=== PATIENT | male | born 1950 | race Caucasian/White ===

== ENCOUNTER 2018-04-07 01:23 | Inpatient (IN) | payer MEDICARE, OTHER ==
[2018-04-07] VITALS (10 sets, daily range): BP systolic 102–149; BP diastolic 69–88
[~2018-04-07] VITALS: Ht 177.8 cm; Wt 93.0 kg
[~2018-04-07 01:23] MED LIST: GABA-549 PO; NAPR220C12 PO; OMEP-218 PO
[2018-04-07] MEDS ORDERED: THROMBIN (BOVINE) 20,000 UNIT VIAL ONE (06:24)
[2018-04-07] MEDS ORDERED: ceFAZolin(*) 2GM/D5W 50ML 50 ML IVPB ONE ×2 (06:30→08:30)
[2018-04-07] MEDS ORDERED: LIDOCAINE MPF 1% 5 ML VIAL ONE (06:45)
[2018-04-07] MEDS ORDERED: fentaNYL CITR 250 MCG/5 ML AMP ONE (06:45)
[2018-04-07] MEDS ORDERED: DEXAMETHASONE SOD 4 MG/ML VIAL ONE (06:45)
[2018-04-07] MEDS ORDERED: PROPOFOL EMUL(*) 10MG/ML 20 ML 20 ML ONE ×2 (06:45→09:04)
[2018-04-07] MEDS ORDERED: ONDANSETRON 4 MG/2 ML VIAL ONE (06:45)
[2018-04-07] MEDS ORDERED: ROCURONIUM BROM 10 MG/ML 10 ML ONE (06:45)
[2018-04-07] MEDS ORDERED: SUGAMMADEX SOD 200 MG/2 ML SDV ONE (06:45)
[2018-04-07] MEDS ORDERED: KETAMINE HCL 200 MG/20 ML MDV ONE (06:48)
[2018-04-07] MEDS ORDERED: HYDROmorphone HCL 2 MG/ML SDV ONE (06:49)
[2018-04-07] MEDS ORDERED: PROPOFOL(*)1000 MG/100 ML VIAL 100 ML ONE ×2 (07:09→07:51)
[2018-04-07] MEDS ORDERED: MIDAZOLAM 2 MG/2 ML VIAL IVP PRN (08:25)
[2018-04-07] MEDS ORDERED: LIDOCAINE/SOD BICARB 8.4% SYR ID ONE (08:30)
[2018-04-07] MEDS ORDERED: MIDAZOLAM 2 MG/2 ML VIAL IVP ONE (08:30)
[2018-04-07] MEDS ORDERED: NORMOSOL R SOLN(*) 1000 ML BAG 1,000 ML IV PRN (08:30)
[2018-04-07] MEDS ORDERED: NS 0.9% 20 ML SDV 40 ML ONE (08:44)
[2018-04-07] MEDS ORDERED: TRANEXAMIC AC 1000 MG/10ML SDV 1,000 MG in DEXTROSE 5% 50 ML BAG 50 ML IVPB ONE (08:45)
[2018-04-07] MEDS ORDERED: fentaNYL CITR 100 MCG/2 ML AMP ONE (11:22)
--- NOTE | 2018-04-07 11:51 | RADIOLOGY IMAGING REPORT ---
FACILITY: [facility] PATIENT NAME: Nils Carrillo : 1950 MR: [id number] V: [id number] EXAM DATE: ORDERING PHYSICIAN: BARTOLO RICHARDS TECHNOLOGIST: Location: [facility] - [place], [place] Patient: Nils Carrillo : 1950 Visit/Account:[id number] Date of Sevice: 04/07/2018 Exam type: LUMBAR SPINE 1 VIEW History: L3-S1 LAMINECTOMIES L4-5 POSTEROLATERAL FUSION Comparison: MR March 15, 2018. Findings: Two prone cross table lateral portable intraoperative views of the lumbar spine were submitted for in terpretation demonstrating posterior lumbar interbody fusion at L4 and L5 with pedicle screws and pos terior fixation rods. Surgical instruments project over the operative field IMPRESSION: 1. As above Report Dictated By: Carol Rangel MD at 04/07/2018 11:46 AM Report E-Signed By: Carol Rangel MD at 04/07/2018 11:47 AM WSN:[email or web address]
[2018-04-07] MEDS ORDERED: ACETAMINOPHEN 500 MG TAB PO PRN (12:15)
[2018-04-07] MEDS ORDERED: BISACODYL 10 MG SUPP PR PRN (12:15)
[2018-04-07] MEDS ORDERED: FLUSH 10 ML SYR IVP PRN (12:15)
[2018-04-07] MEDS ORDERED: MAGNESIUM HYDROXIDE* 30ML UDCP PO PRN (12:15)
[2018-04-07] MEDS ORDERED: HYDROmorphone HCL 2 MG/ML SDV IVP PRN (12:15)
[2018-04-07] MEDS ORDERED: LR(*) 1000 ML BAG 1,000 ML IV PRN (12:15)
[2018-04-07] MEDS ORDERED: oxyCODONE HCL 5 MG CAP PO PRN (12:15)
[2018-04-07] MEDS ORDERED: ACETAMINOPHEN(*)1000 MG/100 ML 100 ML IVPB PRN (12:15)
[2018-04-07] MEDS ORDERED: diphenhydrAMINE 25 MG CAP PO PRN (12:15)
[2018-04-07] MEDS ORDERED: ONDANSETRON 4 MG/2 ML VIAL IVP PRN (12:15)
[2018-04-07] MEDS: APAP/HYDROCODONE 325/5 TAB PO PRN ×4 (12:48→22:11)
[2018-04-07] MEDS: BENZOCAINE/MENTHOL 1 EACH LOZG PO PRN ×4 (12:48→18:31)
--- NOTE | 2018-04-07 14:02 | Hospitalist Consultation ---
History of Present Illness Requesting Physician Dr. Peace Reason for Consult Medication Management Chief Complaint s/p back surgery History of Present Illness He was admitted s/p back surgery. It is reported the surgery went well and without complication. History Problems: (1) Lumbar radiculopathy Status: Chronic Home Meds Reported Medications Naproxen Sodium (ALEVE) 220 Mg Capsule, 220 MG PO for PAIN, CAPSULE 03/30/18 Discontinued Reported Medications Gabapentin (GABAPENTIN) 300 Mg Capsule, 300 MG PO BID, CAPSULE 03/30/18 Allergies: Coded Allergies: epoxy resin (Verified Allergy, Severe, ITCHY/SWELLING OF EYES , 03/30/18) Patient History: FH: diabetes mellitus MOTHER FH: multiple myeloma FATHER FH: ovarian cancer MOTHER Hx Smoking: No (SMOKED IN COLLEGE, NOTHING FOR 40YEARS ) Smoking Status: Former Smoker Caffeine Intake: Coffee Caffeine/Cups Per Day: 2 CUPS OF COFFEE IN AM Hx Alcohol Use: Yes Alcohol Used: Beer Hx Substance Use Disorder: No Social Drug Use: Never Review of Systems All Systems Reviewed/Normal: Yes, Except as Noted Exam Vital Signs Vital Signs Date Time Temp Pulse Resp B/P (MAP) Pulse Ox O2 Delivery O2 Flow Rate FiO2 04/07/18 12:18 97.7 16 135/88 (104) 94 Nasal Cannula 2.0 04/07/18 12:15 72 General Appearance: Alert, Awake, No Acute Distress, Afebrile Neuro: No Gross deficits Cardiovascular: Regular Rate and Rhythm, Other (murmur noted) Respiratory: No Respiratory Distress, Clear to Auscultation Psych: Alert & Oriented X3, Appropriate Mood & Affect Assessment and Plan Problems: (1) Lumbar radiculopathy Status: Chronic Assessment & Plan: He was admitted s/p lumbar laminectomies. He was taking gabapentin for chronic pain, but he has not been taking this medication anymore. He has no history of DVT or PE. Venous Thromboembolism Antithrombotics Is Pt On Any Antithrombotics?: No Prophylaxis Tx Contraindicated Pharmacological Contraindicati: Surgical Contraindication MARC ARZOLA April 07, 2018 14:02
[2018-04-07] MEDS ORDERED: NS(*) 0.9% 500 ML BAG 500 ML ONE (15:01)
[2018-04-07] MEDS: ceFAZolin(*) 2GM/D5W 50ML 50 ML IVPB SCH ×2 (15:15→23:08)
--- NOTE | 2018-04-07 16:55 | OPERATIVE REPORT 1 ---
EVENT DATE: April 07, 2018 SURGEON: Pablo Peace MD ANESTHESIOLOGIST: Tommy Meraz MD ANESTHESIA: General endotracheal anesthesia. FUR DYER: CHIVO Fried PREOPERATIVE DIAGNOSES L3-L4, L4-L5, L5-S1 spinal stenosis with L4-L5 degenerative spondylolisthesis. POSTOPERATIVE DIAGNOSES L3-L4, L4-L5, L5-S1 spinal stenosis with L4-L5 degenerative spondylolisthesis. PROCEDURES PERFORMED L3 to S1 laminectomy with L4-L5 posterolateral instrumented fusion. INTRAVENOUS FLUIDS 2100 mL ESTIMATED BLOOD LOSS 150 mL IMPLANTS USED Reline pedicle screws 6.5 mm x 45 mm from [employer] times four, 35 mm connecting rods from [employer] times two, and locking caps from [employer] times four. SPECIMENS None. DRAINS None. COMPLICATIONS None. DISPOSITION Post-anesthesia care unit. INDICATIONS FOR SURGERY Mr. Carrillo is a 67-year-old male who presented with a complaint of right greater than left radiating pain, numbness, and tingling down his leg. In addition, he had decreased walking tolerance secondary to feeling of tiredness and heaviness in bilateral lower extremities. He had failed physical therapy, injections, medications, and activity modifications. His physical examination was normal, but his imaging studies showed severe spinal stenosis at L4-L5, moderate spinal stenosis at L3-L4, and a broad-based disk bulge with a superimposed right disk herniation at the L5-S1 level. Secondary to ongoing symptoms in the absence of improvement with nonsurgical care, Mr. Carrillo was offered and elected to undergo lumbar laminectomy and fusion. Prior to surgery, I explained in detail to the patient the possible risks of surgery. This included the risk of bleeding, infection, damage to surrounding structures, nerve root injury, persistent and/or worsening pain, spinal fluid leak, meningitis, , blindness, sexual dysfunction, autonomic nervous system dysfunction, and other unforeseen medical and surgical complications. An understanding that spinal surgery in general more predictive at improving extremity discomfort than axial spine pain was stressed. DESCRIPTION OF PROCEDURE On the day of surgery, the patient was met in the preoperative hold area, and all questions were answered. The operative site was identified and marked by myself. Patient was brought in good condition to the operating room, and after succumbing to anesthesia, was positioned in the prone position on a Pradeep table. All bony protuberances and soft tissues were well padded in the standard fashion. Care was taken to maintain appropriate perfusion pressures during anesthesia. Preoperative antibiotics were administered according to the appropriate timing schedule. At the conclusion of the procedure, sponge and needle counts were correct times two. Final timeout was undertaken by members of the operating team to confirm correct patient, correct levels, and correct surgery. The patient was prepped and draped in standard sterile orthopedic fashion. An incision was made in the skin overlying the intended surgical levels. Sharp dissection was carried out down to the posterior elements, and soft tissues were elevated off the posterior elements in a subperiosteal manner. A lateral radiograph was obtained to confirm correct spinal levels. Soft tissues were then cleared off the L4 and L5 levels out laterally along the pars interarticularis, and the entire L4 and L5 transverse processes were cleared bilaterally. Self-retaining retractors were placed, and thrombin-soaked sponges were then tucked into the lateral gutters bilaterally. A Leksell rongeur was used to remove the spinous processes of L3, L4, and L5. The lamina was thinned down the midline with a combination of a high-speed beth and the Leksell rongeur. The canal was entered by using a Thao curette to undermine the superior insertion of the ligamentum flavum on the inferior aspect of the L5 lamina. A Suffolk elevator was used to free all dural adhesions from the surrounding soft tissue and bone prior to use of the Kerrison punch. Kerrison rongeurs 4.0 and 3.0 were then used to perform midline decompression. Bilateral lateral recess decompressions were performed using 3.0 and 4.0 Kerrison rongeurs. The lateral recesses were then carefully checked with a Jamshid elevator and a Sierra probe to ensure that all lateral compression was removed. Foraminal decompressions were performed as necessary at the L3, L4, L5, and S1 nerve roots. Once this was all complete, we used Gelfoam and patties to stop bleeding in the lateral gutters. Attention was then turned to the fusion portion of the procedure. Appropriate starting points for pedicle screws were identified at approximately the junction of the transverse process, the lateral border of the inferior articular process, and the superior aspect of the pars interarticularis. High- speed beth was used to decorticate the starting point. Lenke probe was then used to advance through resistance through the pedicle isthmus and into the vertebral body. A ball-tip feeler was used to probe and ensure absence of bony breeching, palpating the superior, inferior, medial, and lateral aspects of the pedicles as well as distally to confirm no anterior breech. Pedicle screws 6.5 mm x 45 mm were chosen and placed bilaterally at L4 and L5. Neurophysiologic monitoring was used to test the screws, which all tested above 20 mA. The entire wound was then irrigated with copious sterile saline solution, and we then placed 35 mm rods in the screws bilaterally and placed locking caps which were tightened and then finally tightened. The transverse processes were decorticated with use of a high-speed beth bilaterally, and local bone graft from the laminectomy which had been prepared with the bone mill was packed into the lateral gutters bilaterally. Meticulous hemostasis was obtained, and the wound was then closed in layers using interrupted sutures for the deep fascia, inverted interrupted sutures for the subcutaneous tissue, and a running subcuticular skin stitch. Sponge and needle counts were correct times two. Prior to closure, a lateral radiograph confirmed appropriate positioning of the orthopedic implants. POSTOPERATIVE CARE PLAN Mr. Carrillo will remain in hospital overnight and likely be discharged home postoperative day 1 versus postoperative day 2. He will follow up in my clinic in two weeks' time for wound check and examination. ALVARO
[2018-04-07] MEDS: DOCUSATE SODIUM 100 MG CAP PO SCH (19:43)
[2018-04-07] MEDS: DIAZEPAM 5 MG TAB PO PRN (19:43)
[2018-04-08] MEDS: APAP/HYDROCODONE 325/5 TAB PO PRN ×6 (03:29→23:15)
[2018-04-08 03:30] VITALS: BP 118/74
[2018-04-08] MEDS: ceFAZolin(*) 2GM/D5W 50ML 50 ML IVPB SCH (06:25)
[2018-04-08 07:29] VITALS: BP 116/77
[2018-04-08] MEDS: DIAZEPAM 5 MG TAB PO PRN ×2 (09:27→16:24)
[2018-04-08] MEDS: TAMSULOSIN HCL 0.4 MG CAP PO SCH (09:27)
[2018-04-08] MEDS: DOCUSATE SODIUM 100 MG CAP PO SCH ×2 (09:27→20:34)
--- NOTE | 2018-04-08 11:09 | Hospitalist Progress Note ---
Subjective Progress Notes Subjective He has complaints of inability to urinate this morning. Patient Complains of: Cardiovascular: No: Chest Pain Respiratory: No: Shortness of Breath Physical Exam Vital Signs Date Time Temp Pulse Resp B/P (MAP) Pulse Ox O2 Delivery O2 Flow Rate FiO2 04/08/18 07:31 94 Room Air 04/08/18 07:29 99.4 94 14 116/77 (90) 04/08/18 03:30 1.0 Intake and Output 04/09/18 06:59 Intake Total 55 ml Output Total 800 ml Balance -745 ml IV Total 55 ml Output Urine Total 800 ml General Appearance: Alert, Awake, No Acute Distress, Afebrile Neuro: No Gross deficits Cardiovascular: Regular Rate and Rhythm, Other (murmur noted) Respiratory: No Respiratory Distress, Clear to Auscultation GI: Soft and Non-Tender Psych: Alert & Oriented X3, Appropriate Mood & Affect Assessment and Plan Problems: (1) Lumbar radiculopathy Status: Chronic Assessment & Plan: He was admitted s/p lumbar laminectomies. He has no history of DVT or PE. He will be given Flomax today to help with urination. Exam Sepsis Risk: No Definite Risk MARC ARZOLA SPIN TANK TENDER April 08, 2018 11:09
[2018-04-08 11:57] VITALS: BP 100/69
[2018-04-08 14:13] VITALS: Ht 177.8 cm; Wt 93.0 kg
[2018-04-08 15:37] VITALS: BP 110/75
[2018-04-08 18:51] VITALS: BP 119/83
[2018-04-08 23:17] VITALS: BP 132/77
[2018-04-09] MEDS: APAP/HYDROCODONE 325/5 TAB PO PRN ×2 (03:42→08:20)
[2018-04-09 07:25] VITALS: BP 124/81
[2018-04-09] MEDS ORDERED: TAMS0.4C70 PO (07:38)
--- NOTE | 2018-04-09 07:41 | Hospitalist Progress Note ---
Subjective Progress Notes Subjective Patient has a lawrence catheter placed. Continued to have difficulty urinating. Patient Complains of: Cardiovascular: No: Chest Pain Respiratory: No: Shortness of Breath Physical Exam Vital Signs Date Time Temp Pulse Resp B/P (MAP) Pulse Ox O2 Delivery O2 Flow Rate FiO2 04/09/18 07:25 98.9 94 12 124/81 (95) 92 Room Air 04/08/18 03:30 1.0 General Appearance: Alert, Awake, No Acute Distress, Afebrile Neuro: No Gross deficits Cardiovascular: Other (murmur noted) Respiratory: No Respiratory Distress, Clear to Auscultation : Other (difficulty urinating) Psych: Alert & Oriented X3, Appropriate Mood & Affect Assessment and Plan Problems: (1) Lumbar radiculopathy Status: Chronic Assessment & Plan: He was admitted s/p lumbar laminectomies. He has no history of DVT or PE. He will be sent home Flomax to help with urination. Exam Sepsis Risk: No Definite Risk MARC ARZOLA April 09, 2018 07:41
[2018-04-09] MEDS: TAMSULOSIN HCL 0.4 MG CAP PO SCH (08:19)
[2018-04-09] MEDS: DOCUSATE SODIUM 100 MG CAP PO SCH (08:19)
[2018-04-09] MEDS ORDERED: LOR5/325 PO (08:26)
[2018-04-09] MEDS ORDERED: DIA5 PO (08:30)
[2018-04-09] MEDS ORDERED: DOCU240C84 PO (08:33)
[2018-04-09] MEDS: DIAZEPAM 5 MG TAB PO PRN (10:17)
--- NOTE | 2018-04-09 11:47 | RADIOLOGY IMAGING REPORT ---
FACILITY: [facility] [place] PATIENT NAME: Nils Carrillo : 1950 MR: [id number] V: [id number] EXAM DATE: ORDERING PHYSICIAN: BARTOLO RICHARDS TECHNOLOGIST: Location: [facility] - [place] Patient: Nils Carrillo : 1950 Visit/Account:[id number] Date of Sevice: 04/09/2018 Exam type: LUMBAR SPINE 2 OR 3 VIEW History: s/p laminectomy and fusion Comparison: Intraoperative views lumbar spine April 07, 2018. Findings: There are postsurgical changes from posterior lumbar interbody fusion at L4 and L5 with bilateral ped icle screws and short segment posterior fixation rods. Appears to been posterior decompression. The vertebral bodies appear in good alignment. There is moderate disc space narrowing from L2 to S1 IMPRESSION: 1. Postsurgical changes from posterior lumbar interbody fusion at L4 and L5 as described above with the vertebral bodies appearing in good alignment Report Dictated By: Carol Rangel MD at 04/09/2018 11:41 AM Report E-Signed By: Carol Rangel MD at 04/09/2018 11:43 AM WSN:[email or web address]
== END 2018-04-09 10:20 | disposition home or self-care (01) | DRG 460 ==
LOC: OR 01:23 → MED 12:15
PROVIDERS: ADMIT Orthopaedic Surgery; ATTEND Orthopaedic Surgery
PROC: 01NB0ZZ Release Lumbar Nerve, Open Approach (ICD-10-PCS; 2018-04-07)
PROC: 0SG0071 Fusion of Lumbar Vertebral Joint with Autologous Tissue Substitute, Posterior Approach, Posterior Column, Open Approach (ICD-10-PCS; principal; 2018-04-07 07:07)
DX: M51.16 Intervertebral disc disorders with radiculopathy, lumbar region (principal); M51.17 Intervertebral disc disorders with radiculopathy, lumbosacral region; M43.16 Spondylolisthesis, lumbar region; K21.9 Gastro-esophageal reflux disease without esophagitis; Z87.891 Personal history of nicotine dependence
CPT/HCPCS: 36415; 72020; 72100; 86850; 86900; 86901; 97161; C1713; J0690; J1100; J1170; J2001; J2250; J2405; J2704; J3010; J3490; J7040; J7050; J7060